=== PATIENT | female | born 1955 | race Caucasian/White ===

== ENCOUNTER 2018-09-29 07:32 | Day surgery (SDC) | payer OTHER ==
[2018-09-29] MEDS ORDERED: PROPOFOL 20 ML ×2 (08:27)
[2018-09-29] MEDS ORDERED: LIDOCAINE 2% (SDV) 5 ML INJ (08:27)
== END 2018-09-29 15:41 | disposition home or self-care (01) ==
LOC: GIL 07:32
DX: Z12.11 Encounter for screening for malignant neoplasm of colon (principal); D12.8 Benign neoplasm of rectum; K29.50 Unspecified chronic gastritis without bleeding; K25.3 Acute gastric ulcer without hemorrhage or perforation; K26.3 Acute duodenal ulcer without hemorrhage or perforation; I10 Essential (primary) hypertension; E78.5 Hyperlipidemia, unspecified
CPT/HCPCS: 43239; 88305; 88312